=== PATIENT | female | born 1930 | race Caucasian/White ===

== ENCOUNTER 2017-06-25 07:59 | Day surgery (SDC) | payer MEDICARE, OTHER ==
[2017-06-25] MEDS ORDERED: Sodium Chloride 0.9% 5 ML Syringe FLUSH PRN (08:15)
[2017-06-25] MEDS ORDERED: Gatifloxacin 0.5% Ophth Soln 2.5 ML Bot EYELF SCH (08:15)
[2017-06-25] MEDS ORDERED: Lactated Ringers 1,000 ML IV SCH (08:15)
[2017-06-25] MEDS: Phenylephrine 10% Ophth Soln 5 ML Bot EYELF SCH ×3 (08:20→08:50)
[2017-06-25] MEDS ORDERED: Propofol 200 MG/20 ML SDV ONE (10:11)
[2017-06-25] MEDS ORDERED: Balanced Salt Solution Plus Ophth Irrig 500 ML Bottle IOCULAR ONE (10:33)
[2017-06-25] MEDS ORDERED: Balanced Salt Solution Ophth Irrig 15 ML Bottle EYELF ONE (10:33)
[2017-06-25] MEDS ORDERED: Water For Irrigation,Sterile 1,500 ML Container ONE (10:33)
[2017-06-25] MEDS ORDERED: Dexamethasone/Neomycin/Polymyxin B Ophth Oint 3.5 GM Tube EYELF ONE (10:34)
[2017-06-25] MEDS ORDERED: Carbachol 0.01% Intraocular 1.5 ML Vial EYELF ONE (10:34)
[2017-06-25] MEDS ORDERED: Lidocaine 2% with EPINEPHrine 1:100,000 20 ML MDV INJECT ONE (10:34)
[2017-06-25] MEDS ORDERED: EPINEPHrine 1 MG/ML SDV ONE (10:34)
[2017-06-25] MEDS ORDERED: Phenylephrine 10% Ophth Soln 5 ML Bot EYELF ONE (10:35)
[2017-06-25] MEDS ORDERED: Hyaluronate Sodium 1% 0.85 ML Syringe IOCULAR ONE (10:35)
[2017-06-25] MEDS ORDERED: Tetracaine HCl/PF 0.5% 4 ML Bottle EYEBOTH ONE (10:35)
[2017-06-25] MEDS ORDERED: Lidocaine 1% 10 ML MDV INFILT ONE (10:35)
--- NOTE | 2017-06-26 08:27 | OR ---
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 HISTORY: The patient has had more and more difficulty seeing as she tries to read and also as she tries to drive at night. FINDINGS: OPERATIVE PROCEDURE: The patient was taken to the operating room where appropriate anesthesia, sedation and monitoring were provided. A retrobulbar block was given on the left side. The eye was massaged and was found to be appropriately soft. The eye and eyelids were then prepped and draped in the usual sterile manner. A lid speculum was placed. A micro sharp blade was used to enter the anterior chamber inside the limbus inferior-temporally. Xylocaine was irrigated into the eye at this site. Healon was irrigated into the eye through this site. Then using a 2.85 mm corneal blade an entry was made into the anterior chamber just inside the limbus temporally. Healon was again irrigated into the eye. Then using a cystitome, the anterior capsulorrhexis was created. The lens nucleus was hydrodissected using a 27 gauge cannula and balanced salt solution. The phacoemulsification unit was introduced through the temporal site and the Ishmael spatula through the inferior temporal site. In so doing, the lens nucleus was phacoemulsified. The cortical fragments of the lens were removed using the irrigation aspiration unit. The posterior capsule was polished. Healon was irrigated into the eye. The posterior chamber lens was inserted and rotated into position inside the capsular bag. The Healon was irrigated out of the eye. Miostat was irrigated into the eye and the pupil rounded nicely. A single interrupted 10-0 Nylon suture was placed through the temporal corneal incision site. Balanced salt solution was irrigated into the eye. The wound was tested and found to be tight. Maxitrol ointment was placed into the patient's left eye. The eyelids were closed and an eye patch and alfaro shield were placed. The patient left the operating room in good condition. /[id number]/MODL
== END 2017-06-25 11:15 | disposition home or self-care (01) ==
LOC: KA.SDS 07:59
PROVIDERS: ATTEND Ophthalmology
DX: H25.812 Combined forms of age-related cataract, left eye (principal); I10 Essential (primary) hypertension; E83.42 Hypomagnesemia; E03.9 Hypothyroidism, unspecified; E55.9 Vitamin D deficiency, unspecified; Z88.8 Allergy status to other drugs, medicaments and biological substances; Z79.82 Long term (current) use of aspirin; Z79.899 Other long term (current) drug therapy; Z90.49 Acquired absence of other specified parts of digestive tract; Z90.710 Acquired absence of both cervix and uterus
CPT/HCPCS: 66984; A9270; J0171; J7120; 00142; V2632

== ENCOUNTER 2017-10-30 03:05 | Emergency (ER) | payer MEDICARE, OTHER ==
[2017-10-30] MEDS ORDERED: Sodium Chloride 0.9% 5 ML Syringe FLUSH PRN (03:31)
--- NOTE | 2017-10-30 03:38 | EDM.PDOC ---
ED HPI GENERAL MEDICAL PROBLEM - General Chief Complaint: Gastrointestinal Problem Stated Complaint: Nausea/Vomiting, backache Time Seen by Provider: 10/30/17 03:33 Source of Information: Reports: Patient History Limitations: Reports: No Limitations - History of Present Illness INITIAL COMMENTS - FREE TEXT/NARRATIVE: Patient is an 87-year-old female who presents to the emergency department this morning with a complaint of dehydration. Patient feels she is dehydrated because she has not felt like eating and drinking for the last couple days, became nauseous and vomiting prior to ER presentation, had one episode of diarrhea on Saturday, and a fever of 101 on Saturday. Patient denies chest pain, shortness of breath, dizziness, abdominal pain, blood in stool, blood in vomitus , out of country travel, or contact with others with similar symptoms. 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 - Related Data Allergies Allergy/AdvReac Type Severity Reaction Status Date / Time metoclopramide [From Reglan] Allergy UNKOWN Verified 06/25/17 08:19 Home Meds: Home Meds Aspirin [Ecotrin] 81 mg PO DAILY 06/24/17 [History] Cholecalciferol (Vitamin D3) [Vitamin D3] 4,000 units PO DAILY 06/24/17 [History ] Fluocinonide 1 applic TOP TID 06/24/17 [History] Furosemide 1 tab PO DAILY PRN 06/24/17 [History] Garlic 1 each PO DAILY 06/24/17 [History] Gluc 2KCl/Chondr/Brandt Hy/Hy Ac [Glucosamine & Chondroitin Cap] 1 each PO DAILY 06/24/17 [History] Levothyroxine Sodium [Synthroid] 0.5 tab PO DAILY 06/24/17 [History] Levothyroxine [Synthroid] 1 tab PO DAILY 06/24/17 [History] Cephalexin [Keflex] 500 mg PO TID #21 capsule 10/30/17 [Rx] Past Medical History HEENT History: Reports: Cataract, Impaired Vision Cardiovascular History: Reports: Hypertension HAM PASSER History: Reports: Endocrine/Metabolic History: Reports: Hypothyroidism - Infectious Disease History Infectious Disease History: Reports: Mumps - Past Surgical History GI Surgical History: Reports: Other (See Below) Social & Family History - Family History Family Medical History: Noncontributory - Tobacco Use Smoking Status *Q: Never Smoker - Caffeine Use Caffeine Use: Reports: Soda, Tea - Recreational Drug Use Recreational Drug Use: No ED ROS GENERAL - Review of Systems Review Of Systems: ROS reveals no pertinent complaints other than HPI. Constitutional: Reports: Fever, Decreased Appetite HEENT: Reports: No Symptoms Respiratory: Reports: No Symptoms Cardiovascular: Reports: No Symptoms Endocrine: Reports: No Symptoms GI/Abdominal: Reports: Nausea : Reports: No Symptoms Musculoskeletal: Reports: Back Pain (Low to mid back paraspinal) Skin: Reports: No Symptoms Neurological: Reports: No Symptoms Psychiatric: Reports: No Symptoms Hematologic/Lymphatic: Reports: No Symptoms Immunologic: Reports: No Symptoms ED EXAM, GENERAL - Physical Exam Exam: See Below Exam Limited By: No Limitations General Appearance: Alert, WD/WN, No Apparent Distress Eye Exam: Bilateral Eye: Normal Inspection Nose: Normal Inspection, Normal Mucosa, No Blood Throat/Mouth: Normal Inspection, Normal Oropharynx, No Airway Compromise Head: Atraumatic, Normocephalic Neck: Normal Inspection, Supple, Non-Tender Respiratory/Chest: No Respiratory Distress, Lungs Clear, Normal Breath Sounds, No Accessory Muscle Use, Chest Non-Tender Cardiovascular: Normal Peripheral Pulses, Regular Rate, Rhythm, No Edema, No Murmur GI/Abdominal: Normal Bowel Sounds, Soft, Non-Tender, No Organomegaly, No Distention, No Abnormal Bruit, No Mass Back Exam: Paraspinal Tenderness (Patient states that that began because she is been relaxing in bed more often over last couple days. Denies specific injury) . No: CVA Tenderness (L), CVA Tenderness (R) Extremities: Pedal Edema (Of chronic nature) Neurological: Alert, Oriented, No Motor/Sensory Deficits Psychiatric: Normal Affect, Normal Mood Skin Exam: Warm, Dry, Intact, Normal Color, No Rash Lymphatic: No Adenopathy Course - Orders/Labs/Meds Orders: Active Orders 24 hr Category Date Time Status Peripheral IV Care [RC] . DIRECTED Care 10/30/17 03:32 Ordered CBC WITH AUTO DIFF [HEME] Stat Lab 10/30/17 03:31 Ordered COMPREHENSIVE METABOLIC PN,CMP [CHEM] Stat Lab 10/30/17 03:31 Ordered CULTURE URINE [RM] Stat Lab 10/30/17 03:31 Ordered Ondansetron [Zofran] Med 10/30/17 03:32 Once 4 mg IVPUSH ONETIME ONE Sodium Chloride 0.9% @ 999 MLS/HR (1000ml) Med 10/30/17 03:32 Ordered Sodium Chloride 0.9% [Normal Saline] 1,000 ml IV .BOLUS Sodium Chloride 0.9% [Syrex Flush] Med 10/30/17 03:31 Ordered 5 ml FLUSH Q8HR PRN Peripheral IV Insertion Adult [OM.PC] Stat Oth 10/30/17 03:31 Ordered - Re-Assessments/Exams Free Text/Narrative Re-Assessment/Exam: 10/30/17 05:00 Patient afebrile, nontoxic appearing, vital signs stable. Patient given 1 g IV Rocephin. Urine culture ordered. Patient will follow-up with Dr. Gomes in 2- 3 days for recheck. Patient will be given cephalexin prescription Departure - Departure Time of Disposition: 05:18 Disposition: Home, Self-Care 01 Condition: Good Clinical Impression: UTI (urinary tract infection) Qualifiers: Urinary tract infection type: acute cystitis Hematuria presence: with hematuria Qualified Code(s): N30.01 - Acute cystitis with hematuria - Discharge Information Instructions: Urinary Tract Infection, Adult, [id number], Dehydration, Elderly, [id number], Nausea and Vomiting, Adult, [id number] Referrals: Julianne Whitfield MD [Physician] - Additional Instructions: Follow-up with Dr. Gomes in 2-3 days for recheck. Take medication as prescribed. Return to emergency department sooner if symptoms continue or worsen. - My Orders Last 24 Hours: My Active Orders 10/30/17 03:31 CBC WITH AUTO DIFF [HEME] Stat COMPREHENSIVE METABOLIC PN,CMP [CHEM] Stat CULTURE URINE [RM] Stat Sodium Chloride 0.9% [Syrex Flush] 5 ml FLUSH Q8HR PRN Peripheral IV Insertion Adult [OM.PC] Stat 10/30/17 03:32 Peripheral IV Care [RC] . DIRECTED Ondansetron [Zofran] 4 mg IVPUSH ONETIME ONE Sodium Chloride 0.9% @ 999 MLS/HR (1000ml) Sodium Chloride 0.9% [Normal Saline] 1,000 ml IV .BOLUS - Assessment/Plan Last 24 Hours: My Active Orders 10/30/17 03:31 CBC WITH AUTO DIFF [HEME] Stat COMPREHENSIVE METABOLIC PN,CMP [CHEM] Stat CULTURE URINE [RM] Stat Sodium Chloride 0.9% [Syrex Flush] 5 ml FLUSH Q8HR PRN Peripheral IV Insertion Adult [OM.PC] Stat 10/30/17 03:32 Peripheral IV Care [RC] . DIRECTED Ondansetron [Zofran] 4 mg IVPUSH ONETIME ONE Sodium Chloride 0.9% @ 999 MLS/HR (1000ml) Sodium Chloride 0.9% [Normal Saline] 1,000 ml IV .BOLUS Assessment:: Urinary tract infection Plan: Follow-up with Dr. Gomes in 2-3 days
[2017-10-30] MEDS: Ondansetron 4 MG/2 ML SDV IVPUSH ONE ×2 (03:57→05:07)
[2017-10-30] MEDS: Sodium Chloride 0.9% 1,000 ML IV ONE (04:03)
[2017-10-30 04:37] LABS: CHLORIDE,CL 99 mmol/L (98-115); SODIUM,NA 135 mmol/L (136-145)
[2017-10-30] MEDS: Ketorolac 30 MG/ML SDV IVPUSH ONE (04:58)
[2017-10-30] MEDS: cefTRIAXone 1 GM Vial IVPUSH ONE (05:17)
[2017-10-30 05:34] VITALS: BP 140/77
== END 2017-10-30 05:30 | disposition home or self-care (01) ==
LOC: KA.ED 03:05
DX: N30.01 Acute cystitis with hematuria (principal); E03.9 Hypothyroidism, unspecified; Z79.899 Other long term (current) drug therapy; Z88.8 Allergy status to other drugs, medicaments and biological substances; Z79.82 Long term (current) use of aspirin
CPT/HCPCS: 36415; 80053; 81001; 85025; 87086; 87088; 96361; 96374; 96375; 96376; 99283; J0696; J1885; J2405; J7030

== ENCOUNTER 2021-12-17 21:24 | Emergency (ER) | payer MEDICARE ==
[2021-12-17] MEDS ORDERED: Diphtheria,Pertussis(Acell),Tetanus Vaccine 0.5 ML Syringe IM ONE (21:36)
[2021-12-17] MEDS ORDERED: Sulfamethoxazole/Trimethoprim 800-160 MG Tab PO ONE (21:47)
== END 2021-12-17 22:05 | disposition home or self-care (01) ==
LOC: KA.ED 21:24
DX: L03.115 Cellulitis of right lower limb (principal); I10 Essential (primary) hypertension; E03.9 Hypothyroidism, unspecified; Z88.8 Allergy status to other drugs, medicaments and biological substances; Z79.82 Long term (current) use of aspirin; Z23 Encounter for immunization; Z79.899 Other long term (current) drug therapy
CPT/HCPCS: 90471; 90715; 99283; 99284; A9270-GY